=== PATIENT | female | born 1935 | race Caucasian/White ===

== ENCOUNTER 2019-12-15 08:51 | Inpatient (IN) | payer MEDICARE, OTHER ==
[~2019-12-15] VITALS: Ht 152.4 cm; Wt 52.1 kg
[~2019-12-15 08:51] MED LIST: ACET-2274 PO; CALC-10 PO; CHOL400T2 PO; CRAN650C PO; ENOX40SY4 SQ; LEVO25TA2 PO; OXYC5TAB3 PO; POLY1DRO EACHEYE; TIZA2CAP PO
--- NOTE | 2019-12-15 09:04 | NUR ---
PATIENT BIB [facility] FOR ATTEMPTED SUICIDE. PATIENT TOOK 15 5 MG AMBIEN LAST NIGHT WITH THE INTENT TO KILL HERSELF, SHE LEFT A SUICIDE NOTE. PATIENT WOKE UP THIS MORNING AND HAD A GLF AT HOME WHERE SHE HIT HER HEAD. PATIENT STATES SHE IS IN "DISBELIEF THAT SHE SCREWED THIS UP SO BAD." PER EMS REPORT, PATIENT WAS NOT EXPECTING TO WAKE UP THIS MORNING. PATIENT A&OX4, CALM AND COOPERATIVE. PATIENT STATES SHE STILL HAS THOGUHTS OF HARMING HERSELF, AND STATES, "I HAD IT ALL PLANNED OUT, THIS MAKES ME SO MAD." CALL LIGHT WITHIN REACH, VITAL SIGNS WITHIN NORMAL LIMITS, NO FURTHER NEEDS AT THIS TIME. PATIENT'S NIECE WHO IS HER POA IS ON HER WAY.
[2019-12-15 09:17] LABS: BASOPHILS # (AUTO) 0.03 x10^3/uL (0-0.1); BASOPHILS % (AUTO) 0 % (0-1); EOSINOPHILS # (AUTO) 0.04 x10^3/uL (0-0.4); EOSINOPHILS % (AUTO) 1 % (1-7); LYMPHOCYTES # (AUTO) 1.12 x10^3/uL (1-3.4); LYMPHOCYTES % (AUTO) 13 % (22-44); MD NO; MEAN CORPUSCULAR HEMOGLOBIN 31.7 pg (27.0-34.8); MEAN CORPUSCULAR HGB CONC 32.3 g/dL (32.4-35.8); MEAN PLATELET VOLUME 7.3 fL (7.4-10.4); MONOCYTES # (AUTO) 0.29 x10^3/uL (0.2-0.8); MONOCYTES % (AUTO) 3 % (2-9); NEUTROPHILS % (AUTO) 83 % (42-75); PLATELET COUNT 276 x10^3/uL (130-400); RED CELL DISTRIBUTION WIDTH 13.7 % (9.6-15.2)
--- NOTE | 2019-12-15 09:28 | NUR ---
PATIENT GIVEN FOOD AND WATER, CALL LIGHT WITHIN REACH, NO FURTHER NEEDS AT THIS TIME.
[2019-12-15 09:30] LABS: ANION GAP 6 mmol/L (5-15); CALCIUM 9.1 mg/dL (8.5-10.1); CHLORIDE 102 mmol/L (98-107); CREATININE 0.83 mg/dL (0.55-1.02)
[2019-12-15 09:31] LABS: ALANINE AMINOTRANSFERASE 21 U/L (12-78); ALBUMIN 3.5 g/dL (3.4-5.0)
[2019-12-15 09:40] LABS: ALKALINE PHOSPHATASE 107 U/L (45-117); BILIRUBIN,TOTAL 0.6 mg/dL (0.2-1.0); TOTAL PROTEIN 6.5 g/dL (6.4-8.2)
[2019-12-15 09:42] LABS: SALICYLATE LEVEL < 1.7 mg/dL (2.8-20.0)
--- NOTE | 2019-12-15 10:05 | NUR ---
TASK RN: PT SLEEPING, EVEN AND UNLABORED BREATHING, ON MONITOR
--- NOTE | 2019-12-15 11:03 | NUR ---
PATIENT SLEEPING IN RNEY, CHEST RISE AND FALL OBSERVED, ON COOK PICKLED MEAT. CALL LIGHT WITHIN REACH.
--- NOTE | 2019-12-15 11:50 | NUR ---
LATE ENTRY: URINE SAMPLE COLLECTED AND SENT TO LAB.
[2019-12-15 11:58] LABS: MICROSCOPIC INDICATED
[2019-12-15 12:04] LABS: BARBITURATE SCREEN, URINE Negative (Negative); CANNABINOID SCREEN, URINE Negative (Negative); COCAINE SCREEN, URINE Negative (Negative); METHADONE SCREEN, URINE Negative (Negative); OPIATE SCREEN, URINE Negative (Negative)
[2019-12-15 12:05] LABS: AMPHETAMINE SCREEN, URINE Negative (Negative); BENZODIAZEPINE SCREEN, URINE Negative (Negative)
[2019-12-15] MEDS ORDERED: CEFDINIR 300 MG CAPSULE ONE (12:10)
--- NOTE | 2019-12-15 12:20 | NUR ---
MICHAEL BOBBY AT BEDSIDE FOR PSYCH EVALUATION. WARM BLANKET AND PILLOW PROVIDED FOR PATIENT.
[2019-12-15] MEDS ORDERED: CEFDINIR 300 MG CAPSULE PO ONE (12:30)
--- NOTE | 2019-12-15 13:10 | NUR ---
Per Faviola BLUEPRINT ENGINEER evaluation hospice eval with care worker requested.
--- NOTE | 2019-12-15 13:21 | NUR ---
Kanwal Shift Foreman at bedside for evaluation. Meal provided.
--- NOTE | 2019-12-15 13:55 | NUR ---
PATIENT HELPED WITH BED CERON, FULL LINEN CHANGE AND GOWN CHANGE PROVIDED. CALL LIGHT WITHIN REACH, BED RAILS UP X2, NO FURTHER NEEDS AT THIS TIME.
--- NOTE | 2019-12-15 14:18 | NUR ---
[facility] at bedside
[2019-12-15] MEDS ORDERED: ENOXAPARIN 40 MG/0.4 ML ONE (14:40)
[2019-12-15] MEDS ORDERED: CEFTRIAXONE PMX 1GM/50ML 0 ML ONE (14:41)
[2019-12-15] MEDS ORDERED: CEFTRIAXONE PMX 2GM/50ML 50 ML ONE (14:42)
--- NOTE | 2019-12-15 14:53 | NUR ---
20 GAUGE IV STARTED RIGHT AC, 2 GRAM ROCEPHIN HUNG, CALL LIGHT WITHIN REACH, SIDE RAILS UP X2, NO FURTHER NEEDS AT THIS TIME.
[2019-12-15] MEDS: CEFTRIAXONE PMX 2GM/50ML 50 ML IV SCH (14:54)
[2019-12-15] MEDS: ENOXAPARIN 40 MG/0.4 ML SQ SCH (14:54)
--- NOTE | 2019-12-15 15:24 | NUR ---
PATIENT HELPED WITH BEDPAN, CALL LIGHT WITHIN REACH, SIDE RAILS UP X2, NO FURTHER NEEDS AT THIS TIME.
--- NOTE | 2019-12-15 15:53 | NUR ---
PATIENT RESTING IN GURNEY WITH EYES CLOSED, CHEST RISE AND FALL OBSERVED, CALL LIGHT WITHIN REACH, SIDE RAILS UP X2.
--- NOTE | 2019-12-15 16:54 | NUR ---
ASSISTED PATIENT TO BEDSIDE COMMODE AND BACK TO BED. CALL LIGHT WITHIN REACH, SIDE RAILS UP X2, NO FURTHER NEEDS AT THIS TIME.
--- NOTE | 2019-12-15 18:33 | NUR ---
ASSISTANCE PROVIDED TO BEDSIDE COMMODE. PT BACK RESTING IN BED.
--- NOTE | 2019-12-15 18:54 | NUR ---
REPORT RECEIVED FROM VAIBHAV RN. PT RESTING ON GURNEY, UPDATED ON POC, CALL LIGHT WITHIN REACH, MONITORING IN PLACE. ROOM DIMMED FOR PT COMFORT.
--- NOTE | 2019-12-15 19:47 | NUR ---
PT RESTING ON GURNEY WITH EYES CLOSED, RESPIRATIONS EVEN AND NONLABORED. CALL LIGHT WITHIN REACH, CARDIAC AND SPO2 MONITORING IN PLACE. ROOM DIMMED FOR PT COMFORT.
--- NOTE | 2019-12-15 20:51 | NUR ---
PT RESTING ON GURNEY WATCHING TV. PT DENIES ANY NEEDS AT THIS TIME. CALL LIGHT WITHIN REACH, ROOM DIMMED FOR PT COMFRORT.
[2019-12-15 22:22] VITALS: BP 127/57
[2019-12-15 22:31] VITALS: BP 127/57
[2019-12-16 01:09] VITALS: BP 117/64
[2019-12-16] MEDS: ONDANSETRON 2MG/ML, 2ML IVPush PRN ×2 (07:06→20:01)
[2019-12-16] MEDS: SENNA/DOCUSATE TABLET PO SCH (09:12)
[2019-12-16] MEDS: MAGNESIUM CHLORIDE 64 MG TABLET.DR PO SCH (09:12)
[2019-12-16] MEDS: CALCIUM CARBONATE 500 MG TABLET PO SCH (09:12)
[2019-12-16] MEDS: CHOLECALCIFEROL 400 UNITS TABLET PO SCH (09:12)
[2019-12-16 09:15] VITALS: BP 103/65
[2019-12-16] MEDS: ENOXAPARIN 40 MG/0.4 ML SQ SCH (13:32)
[2019-12-16] MEDS: CEFTRIAXONE PMX 2GM/50ML 50 ML IV SCH (13:32)
[2019-12-16 14:07] VITALS: BP 122/72
[2019-12-16] MEDS ORDERED: LEVO50TA PO (15:17)
[2019-12-16 19:08] VITALS: BP 119/71
[2019-12-17 00:31] VITALS: BP 110/68
[2019-12-17 07:26] VITALS: BP 108/58
[2019-12-17] MEDS ORDERED: CEFD300C37 PO (09:35)
[2019-12-17] MEDS: CHOLECALCIFEROL 400 UNITS TABLET PO SCH (10:05)
[2019-12-17] MEDS: CALCIUM CARBONATE 500 MG TABLET PO SCH (10:05)
[2019-12-17] MEDS: MAGNESIUM CHLORIDE 64 MG TABLET.DR PO SCH (10:05)
[2019-12-17] MEDS: ONDANSETRON 2MG/ML, 2ML IVPush PRN (10:05)
[2019-12-17] MEDS: SENNA/DOCUSATE TABLET PO SCH (10:06)
[2019-12-17 13:13] VITALS: BP 108/56
[2019-12-18] MEDS ORDERED: LEVOTHYROXINE 50 MCG TABLET PO SCH (06:00)
== END 2019-12-17 14:44 | disposition hospice, home (50) | DRG 918 ==
LOC: ED 10:08 → EDIP 14:07 → 4NW 22:16
PROVIDERS: ADMIT Internal Medicine; ATTEND Internal Medicine Infectious Disease
DX: T42.6X2A Poisoning by other antiepileptic and sedative-hypnotic drugs, intentional self-harm, initial encounter (principal); R45.851 Suicidal ideations; N39.0 Urinary tract infection, site not specified; G81.94 Hemiplegia, unspecified affecting left nondominant side; C53.9 Malignant neoplasm of cervix uteri, unspecified; E03.9 Hypothyroidism, unspecified; G35 Multiple sclerosis; K74.60 Unspecified cirrhosis of liver; R32 Unspecified urinary incontinence; E07.9 Disorder of thyroid, unspecified; Z66 Do not resuscitate; W18.39XA Other fall on same level, initial encounter; Z85.41 Personal history of malignant neoplasm of cervix uteri; Z85.42 Personal history of malignant neoplasm of other parts of uterus; Z87.891 Personal history of nicotine dependence; Z90.49 Acquired absence of other specified parts of digestive tract; Y93.89 Activity, other specified; Y92.89 Other specified places as the place of occurrence of the external cause; Y99.8 Other external cause status; Z88.5 Allergy status to narcotic agent; Z79.899 Other long term (current) drug therapy
CPT/HCPCS: 36415; 80053; 80307; 81001; 84439; 84443; 85025; 87077; 87086; 87186; 93005; G0378; J0696; J1650; J2405

== ENCOUNTER → 2020-01-17 | Outpatient (CLI) | payer MEDICARE, OTHER ==
[~2020-01-17] MED LIST changes: +CEFD300C37 PO; +LEVO50TA PO
== END | disposition home or self-care (01) ==
LOC: PETCFH 10:53
PROVIDERS: ATTEND Obstetrics & Gynecology
DX: C53.0 Malignant neoplasm of endocervix (principal); K57.30 Diverticulosis of large intestine without perforation or abscess without bleeding; M47.816 Spondylosis without myelopathy or radiculopathy, lumbar region
CPT/HCPCS: 78815; A9552

== ENCOUNTER → 2020-01-31 | Outpatient (CLI) | payer MEDICARE, OTHER ==
[2020-01-31 12:31] LABS: BASOPHILS # (AUTO) 0.03 x10^3/uL (0-0.1); BASOPHILS % (AUTO) 1 % (0-1); EOSINOPHILS # (AUTO) 0.01 x10^3/uL (0-0.4); EOSINOPHILS % (AUTO) 0 % (1-7); LYMPHOCYTES # (AUTO) 1.11 x10^3/uL (1-3.4); LYMPHOCYTES % (AUTO) 16 % (22-44); MD NO; MEAN CORPUSCULAR HEMOGLOBIN 32.8 pg (27.0-34.8); MEAN CORPUSCULAR HGB CONC 33.7 g/dL (32.4-35.8); MEAN PLATELET VOLUME 7.7 fL (7.4-10.4); MONOCYTES # (AUTO) 0.45 x10^3/uL (0.2-0.8); MONOCYTES % (AUTO) 7 % (2-9); NEUTROPHILS # (AUTO) 5.19 x10^3/uL (1.8-6.8); NEUTROPHILS % (AUTO) 76 % (42-75); PLATELET COUNT 277 x10^3/uL (130-400); RED BLOOD COUNT 4.54 x10^6/uL (3.82-5.3); RED CELL DISTRIBUTION WIDTH 13.7 % (9.6-15.2)
[2020-01-31 12:36] LABS: INTERNATIONAL NORMALIZED RATIO 0.97 (0.93-1.1)
[2020-01-31 15:39] LABS: ALBUMIN 3.6 g/dL (3.4-5.0); ANION GAP 5 mmol/L (5-15); CALCIUM 9.4 mg/dL (8.5-10.1); CHLORIDE 103 mmol/L (98-107)
[2020-01-31 15:42] LABS: ALANINE AMINOTRANSFERASE 25 U/L (12-78); ALKALINE PHOSPHATASE 96 U/L (45-117); BILIRUBIN,TOTAL 0.5 mg/dL (0.2-1.0); CREATININE 0.83 mg/dL (0.55-1.02); TOTAL PROTEIN 6.7 g/dL (6.4-8.2)
== END | disposition home or self-care (01) ==
LOC: STAR 11:06
PROVIDERS: ATTEND Obstetrics & Gynecology
DX: Z01.818 Encounter for other preprocedural examination (principal); Z20.828 Contact with and (suspected) exposure to other viral communicable diseases; C53.0 Malignant neoplasm of endocervix
CPT/HCPCS: 36415; 71046; 80053; 85025; 85610; 85730; 87635

== ENCOUNTER 2020-08-17 02:19 | Observation (INO) | payer MEDICARE, OTHER ==
[~2020-08-17] VITALS: Ht 149.9 cm; Wt 48.3 kg
[~2020-08-17 02:19] MED LIST changes: +ACET325T26 PO; +APIX2.5T PO; +ONDA4TAB7 PO; -OXYC5TAB3 PO; +OXYC5TAB98 PO; +OXYcodone/APAP 5/325MG PO
--- NOTE | 2020-08-17 02:35 | NUR ---
PT STATES THAT SHE DOES NOT HAVE CHEST PAIN, BIB [facility] AND A&OX4, PLACED ON CR MONITOR, AND TALKATIVE AND COOPERATIVE. PT COMPLAINS OFF PAIN TO LEGS BILATEALLY DUE TO LYMPHODEMA. MD TO BEDSIDE TO [facility] PT.
--- NOTE | 2020-08-17 03:00 | NUR ---
WRAPPER HAND TO BEDSIDE AND RODRIGO BLOOD FROM PT. PT TOLERATED WELL.
[2020-08-17 03:15] LABS: ALANINE AMINOTRANSFERASE 19 U/L (12-78); ALBUMIN 3.5 g/dL (3.4-5.0); ANION GAP 6 mmol/L (5-15); CALCIUM 8.8 mg/dL (8.5-10.1); CHLORIDE 104 mmol/L (98-107); CREATININE 0.81 mg/dL (0.55-1.02)
[2020-08-17 03:25] LABS: ALKALINE PHOSPHATASE 114 U/L (45-117); BASOPHILS % (AUTO) 0 % (0-1); BILIRUBIN,TOTAL 0.6 mg/dL (0.2-1.0); EOSINOPHILS % (AUTO) 1 % (1-7); LYMPHOCYTES % (AUTO) 8 % (22-44); MEAN CORPUSCULAR HEMOGLOBIN 32.6 pg (27.0-34.8); MEAN CORPUSCULAR HGB CONC 33.9 g/dL (32.4-35.8); MEAN PLATELET VOLUME 8.2 fL (7.4-10.4); MONOCYTES % (AUTO) 6 % (2-9); NEUTROPHILS % (AUTO) 85 % (42-75); PLATELET COUNT 222 x10^3/uL (130-400); RED BLOOD COUNT 4.14 x10^6/uL (3.82-5.3); RED CELL DISTRIBUTION WIDTH 14.3 % (9.6-15.2); TOTAL PROTEIN 6.2 g/dL (6.4-8.2); TROPONIN I < 0.015 ng/mL (0.000-0.045)
[2020-08-17 03:26] LABS: MD NO
--- NOTE | 2020-08-17 04:27 | NUR ---
Amber doyle [phone]
[2020-08-17 04:34] LABS: MICROSCOPIC AUTO
[2020-08-17] MEDS ORDERED: ONDANSETRON ODT 4 MG PO PRN (05:00)
--- NOTE | 2020-08-17 05:05 | NUR ---
PT AWAKE AND ALERT, AND IN BED COMFORTABLE ON CR MONITOR. PIV STARTED TO RIGHT HAND X1 ATTEMPT, 22G, AND PT TOLERATED WELL. GOOD BLOOD RETURN AND POSITIVE FLUSH WITH NO REDNESS OR SWELLING AND NO PAIN NOTED BY PT. ADMITTING MD TO BEDSIDE TO [facility] PT.
[2020-08-17 05:31] VITALS: BP 112/60
[2020-08-17] MEDS ORDERED: PLEASE ENTER HEIGHT AND WEIGHT MC SCH (06:00)
[2020-08-17] MEDS: LEVOTHYROXINE 50 MCG TABLET PO SCH (06:24)
[2020-08-17] MEDS: HEPARIN 5,000 UNITS/ML, 1ML SQ SCH ×2 (06:24→17:35)
[2020-08-17 07:14] LABS: TROPONIN I < 0.015 ng/mL (0.000-0.045)
[2020-08-17 07:41] VITALS: BP 113/73
[2020-08-17 07:42] VITALS: BP_SYST 107; BP_SYST 125; BP_DIAS 50; BP_DIAS 61
[2020-08-17] MEDS ORDERED: APIXABAN 2.5 MG TABLET PO SCH (09:00)
[2020-08-17 10:26] LABS: TROPONIN I < 0.015 ng/mL (0.000-0.045)
[2020-08-17 12:04] VITALS: BP 111/68
[2020-08-17] MEDS: CAPSAICIN CRM 0.075%, 60GM TP SCH ×2 (13:57→20:47)
[2020-08-17] MEDS: ACETAMINOPHEN 325 MG TABLET PO PRN (19:36)
[2020-08-17 19:38] VITALS: BP 123/74
[2020-08-17 23:07] VITALS: BP 121/74
[2020-08-18] MEDS: ACETAMINOPHEN 325 MG TABLET PO PRN (03:56)
[2020-08-18] MEDS: LEVOTHYROXINE 50 MCG TABLET PO SCH (05:54)
[2020-08-18] MEDS: HEPARIN 5,000 UNITS/ML, 1ML SQ SCH (05:54)
[2020-08-18 06:00] LABS: BASOPHILS % (AUTO) 0 % (0-1); EOSINOPHILS % (AUTO) 2 % (1-7); LYMPHOCYTES % (AUTO) 24 % (22-44); MD NO; MEAN CORPUSCULAR HEMOGLOBIN 32.5 pg (27.0-34.8); MEAN CORPUSCULAR HGB CONC 33.9 g/dL (32.4-35.8); MEAN PLATELET VOLUME 8.4 fL (7.4-10.4); MONOCYTES % (AUTO) 8 % (2-9); NEUTROPHILS % (AUTO) 66 % (42-75); PLATELET COUNT 200 x10^3/uL (130-400); RED BLOOD COUNT 3.73 x10^6/uL (3.82-5.3); RED CELL DISTRIBUTION WIDTH 14.4 % (9.6-15.2)
[2020-08-18 06:09] LABS: ANION GAP 4 mmol/L (5-15); CALCIUM 8.7 mg/dL (8.5-10.1); CHLORIDE 110 mmol/L (98-107)
[2020-08-18 06:10] LABS: CREATININE 0.64 mg/dL (0.55-1.02)
[2020-08-18 06:56] VITALS: BP 116/71
[2020-08-18] MEDS ORDERED: CAPS57CR2 TP (10:10)
== END 2020-08-18 11:27 | disposition home or self-care (01) ==
LOC: ED 03:35 → EDIP 04:58 → INTOOBSV 04:58 → 4EST 05:24 → DCLOUNGE 08-18 11:15
PROVIDERS: ATTEND Hospitalist
DX: I95.1 Orthostatic hypotension (principal); E03.9 Hypothyroidism, unspecified; C53.9 Malignant neoplasm of cervix uteri, unspecified; M81.0 Age-related osteoporosis without current pathological fracture; G35 Multiple sclerosis; I07.1 Rheumatic tricuspid insufficiency; I37.1 Nonrheumatic pulmonary valve insufficiency; Z86.718 Personal history of other venous thrombosis and embolism; Z79.899 Other long term (current) drug therapy; Z90.710 Acquired absence of both cervix and uterus; Z87.891 Personal history of nicotine dependence
CPT/HCPCS: 36415; 71045; 80048; 80053; 81001; 82962; 84443; 84484; 85025; 87086; 93005; 93306; 93880; 96372; 97161; 99285; G0378; J1644